=== PATIENT | female | born 1985 | race Caucasian/White ===

== ENCOUNTER → 2016-11-15 | Outpatient (CLI) | payer OTHER | LOC: FIMAGING 12:51 | PROVIDERS: ATTEND Psychiatry & Neurology Neurology | DX: R51 Headache (principal); Z33.1 Pregnant state, incidental; Z3A.17 17 weeks gestation of pregnancy ==

== ENCOUNTER → 2016-11-25 | Outpatient (CLI) | payer OTHER | LOC: FIMAGING 10:01 | PROVIDERS: ATTEND Obstetrics & Gynecology | DX: Z34.02 Encounter for supervision of normal first pregnancy, second trimester (principal); Z3A.20 20 weeks gestation of pregnancy ==

== ENCOUNTER 2016-12-12 00:26 | Inpatient (IN) | payer OTHER ==
[2016-12-12] MEDS ORDERED: NS 1,000 ML IV ONE ×2 (00:42→19:16)
--- NOTE | 2016-12-12 01:02 | SOAPPROG ---
SOAP Progress Note Assessment/Plan: Assessment: 22w6d Upper abdominal/back pain, unclear etiology. DDx includes abruption, HELLP, pancreatitis, gallstones, aortic dissection, MSK, GERD/GI. Currently hemodynamically stable No e/o labor (cervix long/closed, no contractions) status reassuring Plan: Admit to L&D for obs STAT labs including CMP, CBC, lipase, amylase Urine dip Abdominal ultrasound IV morphine EKG Plan to monitor closely, reevaluate when labs/imaging available, consider additional imaging if indicated Subjective: Patient is a 31 yo G1 at 22w6d by LMP and 8 wk US, here for back/abd pain. 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 Starting these evening she developed severe mid-back pain, radiating from mid back up between her scapula and also radiating to mid upper abdomen and around rib cage. No nausea/vomiting. No fevers/chills. No vaginal bleeding or loss of fluid. Baby is active. No chest pain or shortness of breath. The best way she can describe pain is like "severe hunger" even though she has eaten, feels like a deep gnawing sensation. Denies SIMMONS, vision changes. Did a trial of flexeril at home with no improvement, continues to feel worse and worse. Uncomplicated . Declined genetic screening. Normal anatomy US PMH: Depression/anxiety, migraines PSH: [place] teeth removal Meds: PNV Allergies: NDA Social: No EtOH, Tob, drugs. Here with [facility] labs reviewed, all WNL, Rh pos Objective: 124/74, 88, 36.8 Gen: alert, awake, in moderate distres Resp: clear to ausculation bilaterally, slightly shallow breathing CV: RRR Abd: gravid uterus, nontender. Upper abdomen + tenderness, soft, no rebound/ guarding, pt in obvious discomfort with palpation Back: Pt endorses tenderness along spinal column down to level of ASIS up to scapula. No bruising or edema noted Ext: no edema, normal pulses SVE: long/closed/firm (no change from exam in office on 12/08) FHR baseline 140, moderate variability No contractions on toco ICD10 Worksheet Patient Problems: Problems Problem Status Onset 23 weeks gestation of Acute Abdominal pain affecting Acute - ICD10 Problem Qualifiers (1) Abdominal pain affecting (2) 23 weeks gestation of
[2016-12-12 01:21] LABS: % IMMATURE GRANULYOCYTES 0.8 % (0.0-1.1); ADD DIFF? NO; ADD MORPH? NO; ADD SCAN? NO; ATYPICAL LYMPHOCYTE FLAG 10 (0-99); FRAGMENT RBC FLAG 0 (0-99); HEMATOCRIT 38.7 % (38.0-47.0); HEMOGLOBIN 13.3 g/dL (12.6-16.3); LEFT SHIFT FLG 0 (0-99); LIPEMIA HEMOLYSIS FLAG 90 (0-99); MEAN CELL HEMOGLOBIN 30.2 pg (27.9-34.1); MEAN CELL HEMOGLOBIN CONCENTR. 34.4 g/dL (32.4-36.7); MEAN PLATELET VOLUME 10.6 fL (8.7-11.7); PLATELET CLUMPS FLAG 0 (0-99); PLATELET COUNT 227 10^3/uL (150-400); RED CELL DISTRIBUTION WIDTH 12.4 % (11.5-15.2)
[2016-12-12 01:31] LABS: COLOR PALE YELLOW; LEUKOCYTE ESTERASE,URINE NEGATIVE (NEGATIVE); NITRITE,URINE NEGATIVE (NEGATIVE)
[2016-12-12 01:32] LABS: ALANINE AMINOTRANSFERASE 34 IU/L (9-52); ALBUMIN 3.8 g/dL (3.5-5.0); ALKALINE PHOSPHATASE 63 IU/L (38-126); ANION GAP 12 mEq/L (8-16); ASPARTATE AMINOTRANSFERASE 25 IU/L (14-46); BILIRUBIN,TOTAL 0.5 mg/dL (0.1-1.4); BILIRUBIN-CONJUGATED 0.4 mg/dL (0.0-0.5); BILIRUBIN-UNCONJUGATED 0.1 mg/dL (0.0-1.1); CALCIUM 9.7 mg/dL (8.5-10.4); CARBON DIOXIDE 18 mEq/l (22-31); CHLORIDE 108 mEq/L (97-110); CREATININE 0.6 mg/dL (0.6-1.0); GLOMERULAR FILTRATION RATE > 60; GLUCOSE 83 mg/dL (70-100); POTASSIUM 3.8 mEq/L (3.5-5.2); SODIUM 138 mEq/L (134-144); TOTAL PROTEIN 6.6 g/dL (6.3-8.2)
--- NOTE | 2016-12-12 01:52 | CPEKG ---
Heart Rate: 102 RR Interval: 588 P-R Interval: 136 QRSD Interval: 98 QT Interval: 348 QTC Interval: 454 P Cyrus: 51 QRS Cyrus: 59 T Wave Cyrus: 14 EKG Severity - OTHERWISE NORMAL ECG - EKG Impression: SINUS TACHYCARDIA Electronically Signed By: Sebastian Michelle 12-Dec-2016 22:52:14
[2016-12-12] MEDS ORDERED: D5W 1/2 NS W/ 20 KCl/L 1,000 ML IV SCH (02:45)
[2016-12-12] MEDS: LEVOTHYROXINE 25 MCG TAB PO SCH (06:00)
[2016-12-12 08:28] LABS: HEMATOCRIT 33.6 % (38.0-47.0); HEMOGLOBIN 11.4 g/dL (12.6-16.3); MEAN CELL HEMOGLOBIN 30.4 pg (27.9-34.1); MEAN CELL HEMOGLOBIN CONCENTR. 33.9 g/dL (32.4-36.7); MEAN CELL VOLUME 89.6 fL (81.5-99.8); RED BLOOD CELL COUNT 3.75 10^6/uL (4.18-5.33); RED CELL DISTRIBUTION WIDTH 12.5 % (11.5-15.2)
[2016-12-12 08:34] LABS: ALANINE AMINOTRANSFERASE 24 IU/L (9-52); ALKALINE PHOSPHATASE 46 IU/L (38-126); ANION GAP 6 mEq/L (8-16); ASPARTATE AMINOTRANSFERASE 20 IU/L (14-46); BILIRUBIN,TOTAL 0.5 mg/dL (0.1-1.4); CALCIUM 8.3 mg/dL (8.5-10.4); CARBON DIOXIDE 21 mEq/l (22-31); CHLORIDE 109 mEq/L (97-110); CREATININE 0.5 mg/dL (0.6-1.0); GLOMERULAR FILTRATION RATE > 60; GLUCOSE 95 mg/dL (70-100); POTASSIUM 3.8 mEq/L (3.5-5.2); SODIUM 136 mEq/L (134-144); TOTAL PROTEIN 5.5 g/dL (6.3-8.2); TRIGLYCERIDE 90 mg/dL (35-135)
--- NOTE | 2016-12-12 11:00 | SOAPPROG ---
SOAP Progress Note Assessment/Plan: Assessment: 22w6d Acute pancreatitis, likely idiopathic Clinically stable status reassuring Normal triglycerides Plan: Continue inpatient admission NPO with IVF, D5 1/2 NS with KCL 20 meq @ 125 ml/hr VS q6h Doptones BID Discussed plan of care with patient's father in law (debrander). Recommendation to check IgG subclass 4 to eval for autoimmune pancreatitis. When ready to try for food (possibly tomorrow or next day) plan very small amount of low fat diet. If not improving with NPO status and IV fluids plan MRCP to eval for gallstone obstructing CBD No indication for steroids at this time as no concern for delivery. Expect home in 2-4 days Subjective: Feels "90% better" this morning. Very thirsty and hungry. Baby active. Objective: Laboratory Results 12/12/16 08:00 12/12/16 08:00 Laboratory Results 12/12/16 08:00 12/12/16 08:00 12/12/16 12/12/16 12/12/16 08:00 08:00 01:00 WBC 10.83 10^3/uL H 10^3/uL (3.80-9.50) RBC 3.75 10^6/uL L 10^6/uL (4.18-5.33) Hgb 11.4 g/dL L g/dL (12.6-16.3) Hct 33.6 % L % (38.0-47.0) MCV 89.6 fL fL (81.5-99.8) MCH 30.4 pg pg (27.9-34.1) MCHC 33.9 g/dL g/dL (32.4-36.7) RDW 12.5 % % (11.5-15.2) Plt Count 195 10^3/uL 10^3/uL (150-400) MPV Neut % (Auto) Lymph % (Auto) Meagher % (Auto) Eos % (Auto) Baso % (Auto) Nucleat RBC Rel Count Absolute Neuts (auto) Absolute Lymphs (auto) Absolute Monos (auto) Absolute Eos (auto) Absolute Basos (auto) Absolute Nucleated RBC Immature Gran % Immature Gran # Sodium 136 mEq/L mEq/L (134-144) Potassium 3.8 mEq/L mEq/L (3.5-5.2) Chloride 109 mEq/L mEq/L (97-110) Carbon Dioxide 21 mEq/l L mEq/l (22-31) Anion Gap 6 mEq/L L mEq/L (8-16) BUN 7 mg/dL mg/dL (7-23) Creatinine 0.5 mg/dL L mg/dL (0.6-1.0) Estimated GFR > 60 Glucose 95 mg/dL mg/dL (70-100) Calcium 8.3 mg/dL L mg/dL (8.5-10.4) Total Bilirubin 0.5 mg/dL mg/dL (0.1-1.4) Conjugated Bilirubin Unconjugated Bilirubin AST 20 IU/L IU/L (14-46) ALT 24 IU/L IU/L (9-52) Alkaline Phosphatase 46 IU/L IU/L (38-126) Total Protein 5.5 g/dL L g/dL (6.3-8.2) Albumin 3.0 g/dL L g/dL (3.5-5.0) Triglycerides 90 mg/dL mg/dL (35-135) Lipase 1070.0 IU/L H IU/L (23-300) Urine Color PALE YELLOW Urine Appearance CLEAR Urine pH 7.0 (5.0-7.5) Ur Specific [place] 1.002 (1.002-1.030) Urine Protein NEGATIVE (NEGATIVE) Urine Ketones NEGATIVE (NEGATIVE) Urine Blood NEGATIVE (NEGATIVE) Urine Nitrate NEGATIVE (NEGATIVE) Urine Bilirubin NEGATIVE (NEGATIVE) Urine Urobilinogen NEGATIVE EU EU (0.2-1.0) Ur Leukocyte Esterase NEGATIVE (NEGATIVE) Urine Glucose NEGATIVE (NEGATIVE) 12/12/16 12/12/16 01:00 01:00 WBC 13.23 10^3/uL H 10^3/uL (3.80-9.50) RBC 4.40 10^6/uL 10^6/uL (4.18-5.33) Hgb 13.3 g/dL g/dL (12.6-16.3) Hct 38.7 % % (38.0-47.0) MCV 88.0 fL fL (81.5-99.8) MCH 30.2 pg pg (27.9-34.1) MCHC 34.4 g/dL g/dL (32.4-36.7) RDW 12.4 % % (11.5-15.2) Plt Count 227 10^3/uL 10^3/uL (150-400) MPV 10.6 fL fL (8.7-11.7) Neut % (Auto) 66.2 % % (39.3-74.2) Lymph % (Auto) 24.1 % % (15.0-45.0) Meagher % (Auto) 8.2 % % (4.5-13.0) Eos % (Auto) 0.5 % L % (0.6-7.6) Baso % (Auto) 0.2 % L % (0.3-1.7) Nucleat RBC Rel Count 0.0 % % (0.0-0.2) Absolute Neuts (auto) 8.77 10^3/uL H 10^3/uL (1.70-6.50) Absolute Lymphs (auto) 3.19 10^3/uL H 10^3/uL (1.00-3.00) Absolute Monos (auto) 1.08 10^3/uL H 10^3/uL (0.30-0.80) Absolute Eos (auto) 0.06 10^3/uL 10^3/uL (0.03-0.40) Absolute Basos (auto) 0.03 10^3/uL 10^3/uL (0.02-0.10) Absolute Nucleated RBC 0.00 10^3/uL 10^3/uL (0-0.01) Immature Gran % 0.8 % % (0.0-1.1) Immature Gran # 0.10 10^3/uL 10^3/uL (0.00-0.10) Sodium 138 mEq/L mEq/L (134-144) Potassium 3.8 mEq/L mEq/L (3.5-5.2) Chloride 108 mEq/L mEq/L (97-110) Carbon Dioxide 18 mEq/l L mEq/l (22-31) Anion Gap 12 mEq/L mEq/L (8-16) BUN 10 mg/dL mg/dL (7-23) Creatinine 0.6 mg/dL mg/dL (0.6-1.0) Estimated GFR > 60 Glucose 83 mg/dL mg/dL (70-100) Calcium 9.7 mg/dL mg/dL (8.5-10.4) Total Bilirubin 0.5 mg/dL mg/dL (0.1-1.4) Conjugated Bilirubin 0.4 mg/dL mg/dL (0.0-0.5) Unconjugated Bilirubin 0.1 mg/dL mg/dL (0.0-1.1) AST 25 IU/L IU/L (14-46) ALT 34 IU/L IU/L (9-52) Alkaline Phosphatase 63 IU/L IU/L (38-126) Total Protein 6.6 g/dL g/dL (6.3-8.2) Albumin 3.8 g/dL g/dL (3.5-5.0) Triglycerides Lipase 1949.0 IU/L H IU/L (23-300) Urine Color Urine Appearance Urine pH Ur Specific [place] Urine Protein Urine Ketones Urine Blood Urine Nitrate Urine Bilirubin Urine Urobilinogen Ur Leukocyte Esterase Urine Glucose VS reviewed, WNL Gen: alert, awake, NAD Resp: unlabored CV: RRR Abd: gravid, soft, minimally tender to palpation Ext: no edema FHR: 140s at 0100 ICD10 Worksheet Patient Problems: Problems Problem Status Onset 23 weeks gestation of Acute Abdominal pain affecting Acute - ICD10 Problem Qualifiers (1) Abdominal pain affecting (2) 23 weeks gestation of
[2016-12-12] MEDS ORDERED: ACETAMINOPHEN 325 MG TAB PO PRN (16:51)
[2016-12-12] MEDS ORDERED: ACETAMINOPHEN 325 MG TAB PO ONE (17:15)
[2016-12-12] MEDS ORDERED: diphenhydrAMINE 50 MG CAP PO PRN (19:19)
[2016-12-12] MEDS ORDERED: diphenhydrAMINE 25 MG CAP PO PRN (19:49)
--- NOTE | 2016-12-13 07:00 | SOAPPROG ---
SOAP Progress Note Assessment/Plan: Assessment: 23w0d HD#2 Acute pancreatitis, likely idiopathic, improving Clinically stable status reassuring Plan: Continue inpatient admission D5 1/2 NS with KCL 20 meq @ 125 ml/hr. Received a bolus of NS 1000 ml yesterday evening as she had a headache and felt dehydrated VS q6h Doptones BID Increase to clear liquid diet today. Consider low fat food tonight or tomorrow. Consider MRCP to eval for gallstone obstructing CBD if clinical status worsens Pending IgG subclass 4 No indication for steroids at this time as no concern for delivery. Expect home in 1-2 days 12/13/16 06:58 Subjective: Feeling well this AM, slept well. Can't tell if she is just having hunger pains or still has pain from pancreatitis. Baby active. No LOF, contractions, VB. No nausea/vomiting. Tolerated ice chips with no issues. Objective: Laboratory Results 12/12/16 08:00 12/12/16 08:00 Gen: alert, ambulating, NAD Abd: gravid, soft, nontender Ext: no edema FHR: 140s-150s ICD10 Worksheet Patient Problems: Problems Problem Status Onset 23 weeks gestation of Acute Abdominal pain affecting Acute - ICD10 Problem Qualifiers (1) Abdominal pain affecting (2) 23 weeks gestation of
[2016-12-13 07:32] LABS: HEMATOCRIT 39.9 % (38.0-47.0); HEMOGLOBIN 13.2 g/dL (12.6-16.3); MEAN CELL HEMOGLOBIN 29.7 pg (27.9-34.1); MEAN CELL HEMOGLOBIN CONCENTR. 33.1 g/dL (32.4-36.7); MEAN CELL VOLUME 89.9 fL (81.5-99.8); RED BLOOD CELL COUNT 4.44 10^6/uL (4.18-5.33); RED CELL DISTRIBUTION WIDTH 12.7 % (11.5-15.2)
[2016-12-13] MEDS: LEVOTHYROXINE 25 MCG TAB PO SCH (07:53)
[2016-12-13 07:56] LABS: ALANINE AMINOTRANSFERASE 32 IU/L (9-52); ALBUMIN 3.4 g/dL (3.5-5.0); ALKALINE PHOSPHATASE 60 IU/L (38-126); ANION GAP 6 mEq/L (8-16); ASPARTATE AMINOTRANSFERASE 24 IU/L (14-46); BILIRUBIN,TOTAL 0.8 mg/dL (0.1-1.4); CALCIUM 9.2 mg/dL (8.5-10.4); CARBON DIOXIDE 19 mEq/l (22-31); CHLORIDE 110 mEq/L (97-110); CREATININE 0.6 mg/dL (0.6-1.0); GLOMERULAR FILTRATION RATE > 60; GLUCOSE 73 mg/dL (70-100); POTASSIUM 4.3 mEq/L (3.5-5.2); SODIUM 135 mEq/L (134-144); TOTAL PROTEIN 6.4 g/dL (6.3-8.2)
--- NOTE | 2016-12-14 12:36 | GDS ---
[f rep st] DISCHARGE SUMMARY ADMISSION DIAGNOSES: 1. 22 weeks 6 days gestation. 2. Acute pancreatitis. DISCHARGE DIAGNOSES: 1. 23 weeks 0 days gestation. 2. Acute pancreatitis. PROCEDURES: Right upper quadrant ultrasound. COMPLICATIONS: None. CONSULTATIONS: None. HOSPITAL COURSE: Patient is a 31-year-old, 1, para 0, at 22 weeks 6 days who called her OB provider with new onset severe upper mid abdominal and back pain. She was evaluated, including laboratory studies and ultrasound, and ultimately was found to have idiopathic acute pancreatitis with an elevated lipase to 1,949. Remainder of her testing was normal, including liver function panel and abdominal ultrasound. She was admitted for further care. She was made n.p.o. with IV fluids. After 24 hours, she was started on ice chips and then slowly progressed to eating a small amount of a low-fat diet which she tolerated well and had no further pain. Her fetus was monitored throughout her admission and was reassuring. Her liver function panel remained normal. At time of 48 hours, she was tolerating small amounts of food, able to drink water, and continued to have no pain, no nausea, or no vomiting. DISCHARGE INSTRUCTIONS: Continue low-fat diet. Progress diet slowly. Stay hydrated. Call for any return of abdominal pain, nausea, or vomiting. FOLLOWUP: She is scheduled in the office next week for routine OB visit. HOME MEDICATIONS: Continue home vitamins. No new prescriptions. /[id number]/MODL MTDD
== END 2016-12-13 19:03 | disposition home or self-care (01) | DRG 781 ==
LOC: FLD 00:26 → OBSVTOIN 10:52
PROVIDERS: ADMIT Obstetrics & Gynecology; ATTEND Obstetrics & Gynecology
DX: O26.612 Liver and biliary tract disorders in pregnancy, second trimester (principal); K85.00 Idiopathic acute pancreatitis without necrosis or infection; Z3A.22 22 weeks gestation of pregnancy
CPT/HCPCS: 82787-90

== ENCOUNTER 2017-04-04 17:00 | Inpatient (IN) | payer OTHER ==
[2017-04-04] MEDS ORDERED: EPSOM SALT 454 GM TP PRN (17:33)
[2017-04-04] MEDS ORDERED: OLIVE OIL 118 ML BTL MISC PRN (17:33)
[2017-04-04] MEDS ORDERED: OXYTOCIN 20 UNIT in LR 1,000 ML IV PRN (17:33)
[2017-04-04] MEDS ORDERED: TERBUTALINE SULFATE 1 MG/ML VIAL IV PRN (17:33)
[2017-04-04] MEDS ORDERED: LR 1,000 ML IV PRN (17:33)
[2017-04-04 18:21] LABS: % IMMATURE GRANULYOCYTES 0.8 % (0.0-1.1); ADD DIFF? NO; ADD MORPH? NO; ADD SCAN? NO; ATYPICAL LYMPHOCYTE FLAG 0 (0-99); FRAGMENT RBC FLAG 10 (0-99); HEMATOCRIT 44.9 % (38.0-47.0); HEMOGLOBIN 15.2 g/dL (12.6-16.3); LEFT SHIFT FLG 0 (0-99); LIPEMIA HEMOLYSIS FLAG 90 (0-99); MEAN CELL HEMOGLOBIN 29.6 pg (27.9-34.1); MEAN CELL HEMOGLOBIN CONCENTR. 33.9 g/dL (32.4-36.7); MEAN CELL VOLUME 87.4 fL (81.5-99.8); MEAN PLATELET VOLUME 11.3 fL (8.7-11.7); PLATELET CLUMPS FLAG 20 (0-99); PLATELET COUNT 211 10^3/uL (150-400); RED BLOOD CELL COUNT 5.14 10^6/uL (4.18-5.33); RED CELL DISTRIBUTION WIDTH 12.9 % (11.5-15.2)
[2017-04-04 18:28] LABS: ALANINE AMINOTRANSFERASE 43 IU/L (9-52); ASPARTATE AMINOTRANSFERASE 26 IU/L (14-46); BILIRUBIN,TOTAL 0.5 mg/dL (0.1-1.4); BILIRUBIN-CONJUGATED 0.2 mg/dL (0.0-0.5); BILIRUBIN-UNCONJUGATED 0.3 mg/dL (0.0-1.1); CREATININE 0.6 mg/dL (0.6-1.0); GLOMERULAR FILTRATION RATE > 60; LACTATE DEHYDROGENASE 595 IU/L (313-618); URIC ACID 4.9 mg/dL (2.5-6.8)
[2017-04-04] MEDS ORDERED: LIDOCAINE 1% 300 MG/30 ML SDV ONE (18:28)
[2017-04-04] MEDS ORDERED: OLIVE OIL 118 ML BTL ONE (18:29)
[2017-04-04] MEDS ORDERED: OXYTOCIN 10 UNIT/ML VIAL ONE (18:29)
[2017-04-04] MEDS ORDERED: AMMONIA AROMATIC 1 EACH AMP IH ONE (18:29)
[2017-04-04] MEDS ORDERED: TERBUTALINE SULFATE 1 MG/ML VIAL ONE (18:29)
[2017-04-04] MEDS ORDERED: MISOPROSTOL 200 MCG TAB ONE (18:29)
--- NOTE | 2017-04-04 19:23 | PDGENHP ---
History and Physical - Chief Complaint painful contractions - History of Present Illness 31 year-old G1 39.0 (EDC 04/11/17 by LMP) weeks gestation presented in labor. She transferred care from [facility] [place] [facility]. Current has been complicated by maternal tachycardia (normal Holter monitor and cleared by Cardiology), an episode @ 23 weeks gestation of acute pancreatitis (resolved), and migraine headaches. She declined AFP and cfDNA was performed for gender ID only. Normal anatomy scan @ 20 weeks.Patient reports painful contractions since early this afternoon. She denies large loss of fluid. AB+/GBS neg/HIV neg/HBsAg neg/Rubella Immune/RPR NR History Information - Allergies/Home Medication List Allergies/Adverse Reactions: No Known Allergies Allergy (Unverified 12/12/16 00:42) I have personally reviewed and updated: family history, medical history, social history, surgical history Past Medical History: Anxiety, depression, migraines, pancreatitis - Surgical History Additional surgical history: wisdom teeth - Family History Additional family history: non-contributory - Social History Smoking Status: Never smoked Alcohol Use: None Drug Use: None Review of Systems Review of Systems: ROS: 10pt was reviewed & negative except for what was stated in HPI & below Constitutional: Reports: no symptoms EENMT: Reports: no symptoms Cardiac: Reports: no symptoms Respiratory: Reports: no symptoms Gastrointestinal: Reports: no symptoms Muscolosketal: Reports: other (painful uterine contractions) Skin: Reports: no symptoms Neurological: Reports: no symptoms Hematologic/Lymphatic: Reports: no symptoms Immunologic/Allergy: Reports: no symptoms Physical Exam Physical Exam: Constitutional: no apparent distress Eyes: PERRL Cardiovascular: regular rate and rhythym, no murmur, rub, or gallop Respiratory: no respiratory distress Gastrointestinal: soft, non-tender abdomen, other (gravid, S=D) Genitourinary: other (CE = 7/90/-1/intact, vertex) Skin: warm Musculoskeletal: full muscle strength Neurologic: AAOx3 Psychiatric: interacting appropriately Lab Data & Imaging Review 04/04/17 18:00 04/04/17 18:00 WBC 12.35 10^3/uL (3.80-9.50) H 04/04/17 18:00 RBC 5.14 10^6/uL (4.18-5.33) 04/04/17 18:00 Hgb 15.2 g/dL (12.6-16.3) 04/04/17 18:00 Hct 44.9 % (38.0-47.0) 04/04/17 18:00 MCV 87.4 fL (81.5-99.8) 04/04/17 18:00 MCH 29.6 pg (27.9-34.1) 04/04/17 18:00 MCHC 33.9 g/dL (32.4-36.7) 04/04/17 18:00 RDW 12.9 % (11.5-15.2) 04/04/17 18:00 Plt Count 211 10^3/uL (150-400) 04/04/17 18:00 MPV 11.3 fL (8.7-11.7) 04/04/17 18:00 Neut % (Auto) 76.7 % (39.3-74.2) H 04/04/17 18:00 Lymph % (Auto) 15.5 % (15.0-45.0) 04/04/17 18:00 Smith % (Auto) 6.6 % (4.5-13.0) 04/04/17 18:00 Eos % (Auto) 0.2 % (0.6-7.6) L 04/04/17 18:00 Baso % (Auto) 0.2 % (0.3-1.7) L 04/04/17 18:00 Nucleat RBC Rel Count 0.0 % (0.0-0.2) 04/04/17 18:00 Absolute Neuts (auto) 9.48 10^3/uL (1.70-6.50) H 04/04/17 18:00 Absolute Lymphs (auto) 1.91 10^3/uL (1.00-3.00) 04/04/17 18:00 Absolute Monos (auto) 0.82 10^3/uL (0.30-0.80) H 04/04/17 18:00 Absolute Eos (auto) 0.02 10^3/uL (0.03-0.40) L 04/04/17 18:00 Absolute Basos (auto) 0.02 10^3/uL (0.02-0.10) 04/04/17 18:00 Absolute Nucleated RBC 0.00 10^3/uL (0-0.01) 04/04/17 18:00 Immature Gran % 0.8 % (0.0-1.1) 04/04/17 18:00 Immature Gran # 0.10 10^3/uL (0.00-0.10) 04/04/17 18:00 BUN 9 mg/dL (7-23) 04/04/17 18:00 Creatinine 0.6 mg/dL (0.6-1.0) 04/04/17 18:00 Estimated GFR > 60 04/04/17 18:00 Uric Acid 4.9 mg/dL (2.5-6.8) 04/04/17 18:00 Total Bilirubin 0.5 mg/dL (0.1-1.4) 04/04/17 18:00 Conjugated Bilirubin 0.2 mg/dL (0.0-0.5) 04/04/17 18:00 Unconjugated Bilirubin 0.3 mg/dL (0.0-1.1) 04/04/17 18:00 AST 26 IU/L (14-46) 04/04/17 18:00 ALT 43 IU/L (9-52) 04/04/17 18:00 Lactate Dehydrogenase 595 IU/L (313-618) 04/04/17 18:00 Antibody Screen NEGATIVE 04/04/17 18:00 Assessment & Plan Assessment: 31 yo WF G1 @ 39.0 weeks in active labor Plan: Expectant management of labor
[2017-04-04] MEDS ORDERED: BUPIVACAINE 0.25% 30 ML SDV ONE (22:17)
[2017-04-04] MEDS ORDERED: PHENYLEPHRINE HCL 100 MCG/ML SYR ONE (22:17)
[2017-04-04] MEDS ORDERED: fentaNYL 2MCG/ML/BUP 0.1% RTU 100 ML BAG EP ONE (22:17)
--- NOTE | 2017-04-04 23:23 | PREANESOB ---
Obstetric Pre-Anesthesia Info - General Info Proposed Procedure: Labor and delivery : 1 Para: 0 LEORA: 04/11/17 Gestational Age: 39 week(s) and 0 day(s) - Info Status: Full Term Monitors: External FHR Baseline (bpm): 150 FHR Pattern: Reassuring - Labor Status Cervical Dilation per last OB SVE: 8 Indications for Labor Analgesia: Pain Control Labor Epidural: Proposed Anesthesia ROS: History of migraines. Allergies/Adverse Reactions: Allergy/AdvReac Type Severity Reaction Status Date / Time No Known Allergies Allergy Unverified 12/12/16 00:42 Home Medications: Medication Instructions Recorded Levothyroxine [Synthroid 25 mcg 25 mcg PO DAILY AT 6AM #0 tab 12/13/16 (*)] Visit Medications: Generic Name Dose Route Start Last Admin Trade Name Freq PRN Reason Stop Dose Admin Lactated Ringer's 1,000 mls @ 0 mls/hr 04/04/17 17:33 Lr IV 10/01/17 17:32 PRN PRN SEE PROTOCOL CONDITIONS Protocol Per Protocol Oxytocin 20 unit/ Lactated 1,002 mls @ 150 mls/hr 04/04/17 17:33 Ringer's IV PRN PRN Post- bleeding Ibuprofen 600 mg 04/04/17 17:33 Motrin PO 10/01/17 17:32 Q6HRS PRN post , inflammation Magnesium Sulfate 454 gm 04/04/17 17:33 Epsom Salt TP 10/01/17 17:32 Q1H PRN perineal discomfort [place] Oil 118 ml 04/04/17 17:33 Sweet Oil MISC 10/01/17 17:32 ONCE PRN perineal massage Terbutaline Sulfate 0.25 mg 04/04/17 17:33 Brethine IV 10/01/17 17:32 ONCE PRN Tachysystole Discontinued Medications Generic Name Dose Route Start Last Admin Trade Name Freq PRN Reason Stop Dose Admin Ammonia (Aromatic Spirit) Confirm 04/04/17 18:29 Ammonia Aromatic Administered 04/04/17 18:30 Dose 1 each IH .STK-MED ONE Bupivacaine HCl Confirm 04/04/17 22:17 Sensorcaine 0.25% Sdv Administered 04/04/17 22:18 Dose 30 ml .ROUTE .STK-MED ONE Ephedrine Sulfate Confirm 04/04/17 18:29 Ephedrine Sulfate Administered 04/04/17 18:30 Dose 50 mg .ROUTE .STK-MED ONE Fentanyl/Bupivacaine HCl Confirm 04/04/17 22:17 Fentanyl/Bupivacaine/Ns 2 Mcg/Ml 0.1% (Premix Administered 04/04/17 22:18 Dose 100 ml EP .STK-MED ONE Lidocaine HCl Confirm 04/04/17 18:28 Lidocaine Hcl 1% Administered 04/04/17 18:29 Dose 300 mg .ROUTE .STK-MED ONE Misoprostol Confirm 04/04/17 18:29 Cytotec Administered 04/04/17 18:30 Dose 800 mcg .ROUTE .STK-MED ONE [place] Oil Confirm 04/04/17 18:29 Sweet Oil Administered 04/04/17 18:30 Dose 118 ml .ROUTE .STK-MED ONE Oxytocin Confirm 04/04/17 18:29 Pitocin Administered 04/04/17 18:30 Dose 40 unit .ROUTE .STK-MED ONE Phenylephrine HCl Confirm 04/04/17 22:17 Neosynephrine Administered 04/04/17 22:18 Dose 1,000 mcg .ROUTE .STK-MED ONE Terbutaline Sulfate Confirm 04/04/17 18:29 Brethine Administered 04/04/17 18:30 Dose 1 mg .ROUTE .STK-MED ONE - Anesthesia History Response to Local Anesthetics: Normal Anesthesia & Operative History: No Prior Problems Family Anesthesia History: Negative - Social History Substance Use/Abuse: Denies - Vital Signs Blood Pressure: 139/79 Heart Rate: 93 Respiratory Rate: 30 Height/Weight (Nursing): Height 165.1 cm Weight 84.822 kg - Focused Exam Neck exam: FROM Mallampati Score: Class 1 Mouth exam: normal dental/mouth exam Pulmonary: no respiratory distress Cardiovascular: regular rate and rhythym Labs: 04/04/17 18:00 04/04/17 18:00 Patient ABO/Rh AB POSITIVE 04/04/17 18:00 Uric Acid 4.9 mg/dL (2.5-6.8) 04/04/17 18:00 Total Bilirubin 0.5 mg/dL (0.1-1.4) 04/04/17 18:00 Conjugated Bilirubin 0.2 mg/dL (0.0-0.5) 04/04/17 18:00 Unconjugated Bilirubin 0.3 mg/dL (0.0-1.1) 04/04/17 18:00 AST 26 IU/L (14-46) 04/04/17 18:00 ALT 43 IU/L (9-52) 04/04/17 18:00 Lactate Dehydrogenase 595 IU/L (313-618) 04/04/17 18:00 - Plan Anesthetic Plan: CSE Consent Signed and on Chart: Yes Patient/Guardian Understands and Agrees to Plan: Yes Urgent/Emergent Case: Anes eval completed preop but documented later for safe timely pt care General Comments: Verbal consent prior to and written consent after CSE.
--- NOTE | 2017-04-04 23:26 | POSTANESTH ---
Post Anesthetic Evaluation Cardiovascular Status: Normal, Stable Respiratory Status: Normal, Stable, Similar to Pre-op Cond. Level of Consciousness/Mental Status: Can Participate in Eval, Alert and Oriented Pain Control: Adequate, Prn Tx Ordered Nausea/Vomiting Control: Adequate, Prn Tx Ordered Complications Possibly Related to Anesthesia: None Noted
[2017-04-04] MEDS ORDERED: PHENYLEPHRINE HCL 100 MCG/ML SYR IVP PRN (23:28)
[2017-04-04] MEDS ORDERED: ONDANSETRON 4 MG/2 ML VIAL IVP PRN (23:28)
[2017-04-04] MEDS ORDERED: fentaNYL 2MCG/ML/BUP 0.1% RTU 100 ML EP SCH (23:30)
[2017-04-04] MEDS ORDERED: LR 500 ML IV SCH (23:30)
--- NOTE | 2017-04-05 01:06 | OBPROG ---
Labor Progress Note Assessment/Plan: Assessment: 31 year-old G1 in active labor, now s/p epidural analgesia Plan: Continue expectant management, augment if needed 04/05/17 01:04 Subjective/Intrapartum Course: 04/05/17 01:03 RN checked patient s/p epidural analgesia 04/05/17 01:03 Patient is resting comfortably, does not feel increased pressure Objective: 04/04/17 18:00 04/04/17 18:00 Patient ABO/Rh AB POSITIVE 04/04/17 18:00 Uric Acid 4.9 mg/dL (2.5-6.8) 04/04/17 18:00 Total Bilirubin 0.5 mg/dL (0.1-1.4) 04/04/17 18:00 Conjugated Bilirubin 0.2 mg/dL (0.0-0.5) 04/04/17 18:00 Unconjugated Bilirubin 0.3 mg/dL (0.0-1.1) 04/04/17 18:00 AST 26 IU/L (14-46) 04/04/17 18:00 ALT 43 IU/L (9-52) 04/04/17 18:00 Lactate Dehydrogenase 595 IU/L (313-618) 04/04/17 18:00 Temp Pulse Resp BP Pulse Ox 93 30 H 139/79 H 04/04/17 23:26 04/04/17 23:26 04/04/17 23:26 NAD Cervical exam (performed by RN): 8-9cm/100%/+1 station - SVE Dilation (cm): 8 Effacement (%): 100 Station: +1 Membranes: Intact - Contraction Pattern Assessment Current Contraction Pattern: Regular - FHR Assessment Twin A FHR (bpm): 150 FHR Pattern Variability: Moderate Oxytocin Orders Assessment - Pre-Induction/Augmentation Assessment Gestational Age: 39 week(s) and 0 day(s) ICD10 Worksheet Patient Problems: Problems Problem Status Onset 23 weeks gestation of Acute Abdominal pain affecting Acute
[2017-04-05] MEDS ORDERED: LR 500 ML IV PRN (05:32)
--- NOTE | 2017-04-05 05:36 | OBPROG ---
Labor Progress Note Assessment/Plan: Assessment: 31 year-old G1 in active labor, now s/p epidural analgesia Plan: Continue expectant management, augment if needed 04/05/17 01:04 04/05/17 05:34 Completely dilated, passive "laboring down" over past 30 min 04/05/17 05:34 Plan: Will attempt pushing/second stage now Subjective/Intrapartum Course: 04/05/17 01:03 RN checked patient s/p epidural analgesia 04/05/17 01:03 Patient is resting comfortably, does not feel increased pressure Objective: 04/04/17 18:00 04/04/17 18:00 Patient ABO/Rh AB POSITIVE 04/04/17 18:00 Uric Acid 4.9 mg/dL (2.5-6.8) 04/04/17 18:00 Total Bilirubin 0.5 mg/dL (0.1-1.4) 04/04/17 18:00 Conjugated Bilirubin 0.2 mg/dL (0.0-0.5) 04/04/17 18:00 Unconjugated Bilirubin 0.3 mg/dL (0.0-1.1) 04/04/17 18:00 AST 26 IU/L (14-46) 04/04/17 18:00 ALT 43 IU/L (9-52) 04/04/17 18:00 Lactate Dehydrogenase 595 IU/L (313-618) 04/04/17 18:00 Temp Pulse Resp BP Pulse Ox 93 30 H 139/79 H 04/04/17 23:26 04/04/17 23:26 04/04/17 23:26 - SVE Dilation (cm): 10 Effacement (%): 100 Station: +1 Membranes: Intact - Contraction Pattern Assessment Current Contraction Pattern: Regular - FHR Assessment [place] FHR (bpm): 150 FHR Pattern Variability: Moderate FHR Category: 1 Oxytocin Orders Assessment - Pre-Induction/Augmentation Assessment Gestational Age: 39 week(s) and 0 day(s) ICD10 Worksheet Patient Problems: Problems Problem Status Onset 23 weeks gestation of Acute Abdominal pain affecting Acute
[2017-04-05] MEDS ORDERED: OXYTOCIN/RINGERS LACTATE 500 ML IV SCH (06:00)
[2017-04-05] MEDS ORDERED: ACETAMINOPHEN 325 MG TAB PO PRN (06:22)
--- NOTE | 2017-04-05 06:26 | OBPROG ---
Labor Progress Note Assessment/Plan: Assessment: 31 year-old G1 in active labor, now s/p epidural analgesia Plan: Continue expectant management, augment if needed 04/05/17 01:04 04/05/17 05:34 Completely dilated, passive "laboring down" over past 30 min 04/05/17 05:34 Plan: Will attempt pushing/second stage now 04/05/17 06:23 31 year-old G1 in 2nd stage of labor with maternal tachycardia, tachycardia and mildly elevated temperatures. Pitocin augmentation has been started. Tylenol 650 mg PO will be given. Low-threshold for starting IV ampicillin and gentamicin if suspicion rises for chorioamnionitis. Subjective/Intrapartum Course: 04/05/17 01:03 RN checked patient s/p epidural analgesia 04/05/17 01:03 Patient is resting comfortably, does not feel increased pressure Objective: 04/04/17 18:00 04/04/17 18:00 Patient ABO/Rh AB POSITIVE 04/04/17 18:00 Uric Acid 4.9 mg/dL (2.5-6.8) 04/04/17 18:00 Total Bilirubin 0.5 mg/dL (0.1-1.4) 04/04/17 18:00 Conjugated Bilirubin 0.2 mg/dL (0.0-0.5) 04/04/17 18:00 Unconjugated Bilirubin 0.3 mg/dL (0.0-1.1) 04/04/17 18:00 AST 26 IU/L (14-46) 04/04/17 18:00 ALT 43 IU/L (9-52) 04/04/17 18:00 Lactate Dehydrogenase 595 IU/L (313-618) 04/04/17 18:00 Temp Pulse Resp BP Pulse Ox 93 30 H 139/79 H 04/04/17 23:26 04/04/17 23:26 04/04/17 23:26 Maternal temp = 99F Warm to touch on pelvic exam CE: /+1 station - SVE Dilation (cm): 10 Effacement (%): 100 Station: +1 Membranes: SROM Amniotic Fluid Color: Clear - Contraction Pattern Assessment Current Contraction Pattern: Regular - FHR Assessment [place] FHR (bpm): 160 FHR Pattern Variability: Moderate Oxytocin Orders Assessment - Pre-Induction/Augmentation Assessment Gestational Age: 39 week(s) and 0 day(s) ICD10 Worksheet Patient Problems: Problems Problem Status Onset 23 weeks gestation of Acute Abdominal pain affecting Acute
--- NOTE | 2017-04-05 09:05 | OBDEL ---
Info Type: Vaginal Presentation at Delivery: Vertex L&D Analgesia/Anesthesia Type: Epidural, Local GBS+: No Intrapartum Medications: Generic Name Dose Route Start Last Admin Trade Name [place] PRN Reason Stop Dose Admin Acetaminophen 325 - 650 mg 04/05/17 06:22 04/05/17 06:42 Tylenol PO 10/02/17 06:21 650 mg Q3HRS PRN Administration Pain, Mild - Hospital Course Intrapartum: 04/05/17 01:03 RN checked patient s/p epidural analgesia 04/05/17 01:03 Patient is resting comfortably, does not feel increased pressure Indications for Delivery: Spontaneous Labor, SROM Vaginal Delivery - Delivery Provider Delivery Physician/CNM: Catina Bloom Proctoring Provider: Harriett Francis - Labor and Delivery Onset of Contractions Date: 04/04/17 Onset of Contractions Time: 11:00 Onset of Contractions Type: Augmented Rupture of Membranes Date: 04/04/17 Rupture of Membranes Time: 23:00 Rupture of Membranes Type: Spontaneous Amniotic Fluid Color: Clear Dilation Complete Date: 04/05/17 Dilation Complete Time: 04:00 Placenta Delivery Date: 04/05/17 Placenta Delivery Time: 08:29 Total Hours of Labor: 21 Laceration: 2nd Degree Repair: 3-0, Vicryl, Other (Specify) (left labial , right sulcous 2nd degree repaired) Vaginal Sponge Count Correct: Yes Vaginal Needle Count Correct: Yes Vaginal Sweep Performed: Yes EBL: 400 Delivery Events: Nuchal Cord - Medications Labor Augmentation/Induction Methods Used: Pitocin Labor Augmentation/Induction Indication: Contraction Strength Inadequate Data [place] Delivery Date: 04/05/17 Delivery Time: 08:24 LEORA: 04/11/17 Gestational Age: 39 week(s) and 1 day(s) Sex of Infant: Male Score (1 Min): 8 Score (5 Min): 9 ICD10 Worksheet Patient Problems: Problems Problem Status Onset 23 weeks gestation of Acute Abdominal pain affecting Acute
[2017-04-05] MEDS ORDERED: HYDROCORTISONE 0.5% CREAM TP PRN (09:06)
[2017-04-05] MEDS ORDERED: SIMETHICONE 80 MG TAB CHEW PO PRN (09:06)
[2017-04-05] MEDS: IBUPROFEN 600 MG TAB PO PRN ×3 (11:04→23:25)
[2017-04-05] MEDS: DOCUSATE SODIUM 100 MG CAP PO PRN (17:31)
[2017-04-05] MEDS: HYDROCODONE/APAP 5/325 TAB PO PRN ×2 (19:16→23:24)
[2017-04-06] MEDS: HYDROCODONE/APAP 5/325 TAB PO PRN ×5 (03:24→15:34)
[2017-04-06] MEDS: IBUPROFEN 600 MG TAB PO PRN ×3 (05:58→17:56)
[2017-04-06] MEDS: DOCUSATE SODIUM 100 MG CAP PO PRN (07:27)
--- NOTE | 2017-04-06 14:30 | OBPP ---
Progress Note Assessment/Plan: Assessment: [id number] s/p , PPD#1 2nd degree perineal lac/right sulcus/left labial flat/inverted nipples Plan: routine PP care cont to work on - will use shield/pump to help faustino nipples plan to d/c home 2-3 days PP 04/06/17 14:26 04/06/17 14:31 04/06/17 14:32 Subjective/ Course: 04/06/17 14:29 Pt doing well, she is ambulating without difficulty. She is working on . baby has poor latch- likely 2/2 flat nipples. reports moderate lochia. reports perineal pain, improved with pain meds. FOB supportive and at BS. 04/06/17 14:34 Objective: 04/04/17 18:00 04/04/17 18:00 Uric Acid 4.9 mg/dL (2.5-6.8) 04/04/17 18:00 Total Bilirubin 0.5 mg/dL (0.1-1.4) 04/04/17 18:00 Conjugated Bilirubin 0.2 mg/dL (0.0-0.5) 04/04/17 18:00 Unconjugated Bilirubin 0.3 mg/dL (0.0-1.1) 04/04/17 18:00 AST 26 IU/L (14-46) 04/04/17 18:00 ALT 43 IU/L (9-52) 04/04/17 18:00 Lactate Dehydrogenase 595 IU/L (313-618) 04/04/17 18:00 Temp Pulse Resp BP Pulse Ox 36.4 C 80 14 101/71 98 04/06/17 08:00 04/06/17 08:00 04/06/17 08:00 04/06/17 08:00 04/06/17 08:00 Exam: constitutional: A&Ox3, WNWF HEENT: normocephalic, atraumatic chest/breasts: nipples flat abdomen: soft, nontender uterus: firm @U lochia: moderate rubra perineum: healing, sutures intact extremities: 1+edema, negative nicholas's sign neuro: grossly normal Uterine Position/Fundal Height: At Umbilicus, Midline Uterine Tone: Firm
[2017-04-06] MEDS: CYCLOBENZAPRINE 10 MG TAB PO SCH (17:58)
[2017-04-07] MEDS: IBUPROFEN 600 MG TAB PO PRN ×3 (00:11→13:58)
[2017-04-07] MEDS: CYCLOBENZAPRINE 10 MG TAB PO SCH ×2 (05:33→09:38)
--- NOTE | 2017-04-07 08:37 | OBPP ---
Progress Note Assessment/Plan: Assessment: with assistance, nipples intact pain well managed voiding with out difficulty pericare perineum approximated minimal swelling scant rubra lochia ff@u vs wnl Plan:dischagre to home with instructions fu 4 weeks and 6 weeks, fu encouraged 04/07/17 08:36 Subjective/ Course: Doing well. with assitance, consult, swore perineum , back pain, doing better with mobility 2nd day pp. 04/06/17 14:29 Pt doing well, she is ambulating without difficulty. She is working on . baby has poor latch- likely 2/2 flat nipples. reports moderate lochia. reports perineal pain, improved with pain meds. FOB supportive and at BS. 04/06/17 14:34 04/07/17 08:34 Doing well , pain well managed, needing some assistance with Objective: 04/04/17 18:00 04/04/17 18:00 Patient ABO/Rh A2B POSITIVE 04/04/17 18:00 Uric Acid 4.9 mg/dL (2.5-6.8) 04/04/17 18:00 Total Bilirubin 0.5 mg/dL (0.1-1.4) 04/04/17 18:00 Conjugated Bilirubin 0.2 mg/dL (0.0-0.5) 04/04/17 18:00 Unconjugated Bilirubin 0.3 mg/dL (0.0-1.1) 04/04/17 18:00 AST 26 IU/L (14-46) 04/04/17 18:00 ALT 43 IU/L (9-52) 04/04/17 18:00 Lactate Dehydrogenase 595 IU/L (313-618) 04/04/17 18:00 Temp Pulse Resp BP Pulse Ox 37.2 C 74 12 110/68 98 04/06/17 20:00 04/06/17 20:00 04/06/17 20:00 04/06/17 20:00 04/06/17 20:00 Uterine Position/Fundal Height: At Umbilicus Uterine Tone: Firm Physical Exam - Physical Exam General Appearance: WD/WN, alert, no apparent distress Abdomen: other (ff@u/ scant rubra lochia) Extremities: normal range of motion, Ciaran's sign (negative bilaterally) DTR- Lower Extremities: Knee (R): 1+, Knee (L): 1+ Skin: normal color, warm/dry Neuro/Psych: no motor/sensory deficits, alert, normal mood/affect, oriented x 3
--- NOTE | 2017-04-07 08:52 | OBGCSDC ---
General Delivery Information - General Info : 1 Para: 1 Abortions: 0 Type: Vaginal L&D Analgesia/Anesthesia Type: Epidural, Local Admission Date: 04/04/17 Labs: Patient ABO/Rh A2B POSITIVE 04/04/17 18:00 Hct 44.9 % (38.0-47.0) 04/04/17 18:00 - Hospital Course Intrapartum: 04/05/17 01:03 RN checked patient s/p epidural analgesia 04/05/17 01:03 Patient is resting comfortably, does not feel increased pressure : Doing well. with assitance, consult, swore perineum , back pain, doing better with mobility 2nd day pp. 04/06/17 14:29 Pt doing well, she is ambulating without difficulty. She is working on . baby has poor latch- likely 2/2 flat nipples. reports moderate lochia. reports perineal pain, improved with pain meds. FOB supportive and at BS. 04/06/17 14:34 04/07/17 08:34 Doing well , pain well managed, needing some assistance with Vaginal - Delivery Provider Delivery Physician/CNM: Catina Bloom - Diagnosis Labor: Augmented Rupture of Membranes Type: Spontaneous Amniotic Fluid Color: Clear Laceration: 2nd Degree Repair: 3-0, Vicryl, Other (Specify) (left labial , right sulcous 2nd degree repaired) Delivery Events: Nuchal Cord - Delivery EBL: 400 [place] Data [place] Delivery Date: 04/05/17 Delivery Time: 08:24 LEORA: 04/11/17 Gestational Age: 39 week(s) and 3 day(s) Sex of Infant: Male [place] Weight (gm): 3482 kg Score (1 Min): 8 Score (5 Min): 9 Discharge Information - Discharge Information Prescriptions: Ibuprofen [Motrin (*)] 600 mg PO Q6HRS PRN #30 tab PRN Reason: post , inflammation Condition: Good
[2017-04-07] MEDS: HYDROCODONE/APAP 5/325 TAB PO PRN (09:37)
[2017-04-07 10:40] VITALS: BP 114/74; PULSE 83; RESP 18; TEMP 98.8; O2SAT 95
== END 2017-04-07 18:45 | disposition home or self-care (01) | DRG 774 ==
LOC: FLD 17:00 → FOB 04-05 12:18
PROVIDERS: ADMIT Obstetrics & Gynecology Gynecology; ATTEND Obstetrics & Gynecology
PROC: 0KQM0ZZ Repair Perineum Muscle, Open Approach (ICD-10-PCS; principal; 2017-04-04)
PROC: 10E0XZZ Delivery of Products of Conception, External Approach (ICD-10-PCS; principal; 2017-04-04)
DX: O70.1 Second degree perineal laceration during delivery (principal); O69.82X0 Labor and delivery complicated by other cord entanglement, without compression, not applicable or unspecified; O76 Abnormality in fetal heart rate and rhythm complicating labor and delivery; O75.2 Pyrexia during labor, not elsewhere classified; Z3A.39 39 weeks gestation of pregnancy; Z37.0 Single live birth
CPT/HCPCS: J2370; J2590; J3105

== ENCOUNTER → 2017-04-26 | Outpatient (CLI) | payer OTHER | LOC: FLACT 09:59 | PROVIDERS: ATTEND Advanced Practice Midwife | DX: O92.79 Other disorders of lactation (principal) | CPT/HCPCS: G0463 ==